=== PATIENT | female | born 1975 ===

== ENCOUNTER 2017-10-21 12:01 | Emergency (ER) | payer MEDICAID, OTHER ==
[2017-10-21 12:40] VITALS: RESP 16; TEMP 98.2
--- NOTE | 2017-10-21 13:57 | C.PDOC ---
History Of Present Illness 42 y/o female presents to ED with complaints of right shoulder pain radiating down right arm and pain to dorsum of hand with associated loss of sensation to right middle finger since last night. Patient reports taking Tylenol and Motrin with no relief and denies heavy lifting, injury or any other complaints at this time. no neck pain. Time Seen by Provider: 10/21/17 13:35 Chief Complaint (Nursing): Upper Extremity Problem/Injury History Per: Patient History/Exam Limitations: no limitations Onset/Duration Of Symptoms: Days Past Medical History Reviewed: Historical Data, Nursing Documentation, Vital Signs Vital Signs: Last Vital Signs Temp 98.2 F 10/21/17 14:49 Pulse 80 10/21/17 14:49 Resp 16 10/21/17 14:49 BP 122/70 10/21/17 14:49 Pulse Ox 98 10/25/17 01:35 - Medical History PMH: Anxiety, Diabetes, HTN, Hypercholesterolemia Other PMH: lumbar disc problems Surgical History: No Surg Hx, Tonsillectomy - [facility] URETERAL MEATUS DILATION (03/29/14) Family History: States: No Known Family Hx - Social History Hx Tobacco Use: No Hx Alcohol Use: No Hx Substance Use: No - Immunization History Hx Tetanus Toxoid Vaccination: No Hx Influenza Vaccination: No Hx Pneumococcal Vaccination: No Review Of Systems Constitutional: Negative for: Fever, Chills Musculoskeletal: Positive for: Shoulder Pain, Arm Pain Skin: Negative for: Rash Neurological: Positive for: Numbness. Negative for: Weakness Physical Exam - Physical Exam Appears: Non-toxic, No Acute Distress, Other (overweight) Skin: Warm, Dry, No Rash Head: Atraumatic, Normacephalic Oral Mucosa: Moist Neck: Normal ROM, Supple Back: Other (right trapezius muscle tenderness) Extremity: Tenderness (to right palm), Other (painful rom to right shoulder. ) Pulses: Left Radial: Normal, Right Radial: Normal Neurological/Psych: Oriented x3, No Normal Sensation (Decreased sensation ro right middle finger) ED Course And Treatment O2 Sat by Pulse Oximetry: 98 (RA) Pulse Ox Interpretation: Normal Medical Decision Making Medical Decision Making: pt with decreased pain after Toradol. will d/c with nsaids and flexeril, pmd f/u Disposition Counseled Patient/Family Regarding: Diagnosis, Need For Followup, Rx Given - Disposition Referrals: [facility] [Outside] Disposition: HOME/ ROUTINE Disposition Time: 14:18 Condition: IMPROVED Additional Instructions: Please apply cold compress several times to right shoulder area for the next day. Take naproxen as prescribed. Take Flexeril up to 3 times a day (if at home )- no driving or operating machinery when taking this medicine. If working or need to drive, take only at bedtime. FOllow up in medical clinic and neurologist in a few days. Prescriptions: Cyclobenzaprine [Cyclobenzaprine HCl] 10 mg PO Q8 #9 tab Naproxen [Anaprox DS] 550 mg PO BID #20 tab Instructions: Radiculopathy (DC) Forms: General Discharge Instructions, [facility] (Czech), Work Excuse - Clinical Impression Clinical Impression: Cervical radiculopathy - PA / ALARM TECHNICIAN / Resident Statement MD/DO has reviewed & agrees with the documentation as recorded. - Scribe Statement The provider has reviewed the documentation as recorded by the Jason Soni All medical record entries made by the Jason were at my direction and personally dictated by me. I have reviewed the chart and agree that the record accurately reflects my personal performance of the history, physical exam, medical decision making, and the department course for this patient. I have also personally directed, reviewed, and agree with the discharge instructions and disposition.
[2017-10-21 14:50] VITALS: BP 122/70; PULSE 80
[2017-10-25 01:35] VITALS: O2SAT 98
== END 2017-10-21 14:49 | disposition home or self-care (01) ==
LOC: C.ER 12:01
DX: M54.12 Radiculopathy, cervical region (principal)
CPT/HCPCS: 96372; 99284; J1885